=== PATIENT | male | born 1955 | race Caucasian/White ===

== ENCOUNTER 2020-11-28 11:48 | Emergency (ER) | payer OTHER, SELFPAY ==
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
[2020-11-28 11:55] VITALS: BP 150/86; BP 185/86; PULSE 103; PULSE 98; RESP 20; TEMP 35.8; O2SAT 94; O2SAT 985; BMI 31.5
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
[2020-11-28 14:00] VITALS: BP 150/76; PULSE 92; RESP 17; O2SAT 95
[2020-11-28 14:37] LABS: MANUAL DIFF FLAG NO
[2020-11-28 14:39] LABS: Basophils Absolute Auto 0.1 X10*3/uL (0.0-0.2); Basophils Percent Auto 0.4 % (0-2); Eosinophils Absolute Auto 0.1 X10*3/uL (0.0-0.4); Eosinophils Percent Auto 0.6 % (0-4); Hemoglobin 15.1 g/dl (14.0-18.0); Imm Gran Abs Auto 0.04 X10*3/uL (0.00-0.03); Imm Gran Pct Auto 0.3 % (0.0-0.4); Lymphocytes Absolute Auto 1.6 X10*3/uL (1.2-4.9); Lymphocytes Percent Auto 10.9 % (20-40); Mean Corpuscular HGB Conc 35.1 g/dl (31.0-36.0); Mean Corpuscular Hemoglobin 32.7 pg (27.0-33.0); Mean Corpuscular Volume 93.1 fL (80-98); Mean Platelet Volume 8.9 fL (9.4-12.4); Monocytes Absolute Auto 0.8 X10*3/uL (0.1-1.2); Monocytes Percent Auto 5.7 % (2-11); Neutrophils Absolute Auto 11.6 X10*3/uL (2.0-8.3); Neutrophils Percent Auto 82.1 % (45-73); Platelet Count 317 X10*3/uL (160-400); Red Blood Count 4.62 X10*6/uL (4.60-5.80); Red Cell Distribution Width 11.7 % (11.0-16.0); White Blood Count 14.2 X10*3/uL (4.8-10.8)
[2020-11-28] MEDS: LORazepam 2 MG/ML VIAL IVPUSH ×3 (14:40→16:17)
[2020-11-28] MEDS: Albuterol Sulfate (0.083%) 2.5 MG/3 ML VIAL.NEB 5 MG INHALE (14:42)
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
[2020-11-28 14:45] LABS: INTERNATIONAL NORM RATIO 1.1 (0.9-1.1); Prothrombin Time 13.4 SEC (10.8-13.0)
[2020-11-28 14:46] VITALS: PULSE 91; O2SAT 94
[2020-11-28 14:48] LABS: Partial Thromboplastin Time 34.9 SEC (24.1-38.0)
[2020-11-28 15:05] LABS: Ethanol 110 mg/dL
[2020-11-28 15:08] LABS: Alanine Aminotransferase 26 U/L (0-40); Albumin Level 4.3 g/dL (3.5-5.0); Alkaline Phosphatase 121 U/L (39-117); Anion Gap 16 (12-20); Aspartate Amino Transferase 28 U/L (5-37); Bilirubin Direct 0.2 mg/dL (0.0-0.5); Bilirubin Total 0.4 mg/dL (0.0-1.0); Blood Urea Nitrogen 9 mg/dL (9-16); Calcium 9.4 mg/dL (8.4-10.2); Carbon Dioxide 26 mmol/L (22-29); Chloride 98 mmol/L (96-108); Estimated Glomerular Filt Rate > 60; Glucose Random 99 mg/dL (60-115); Lipase 65 U/L (8-78); Sodium 136 mmol/L (135-145); Total Protein 7.4 g/dL (6.5-8.0)
[2020-11-28] MEDS: 0.9 % Sodium Chloride 1,000 ML 999 ML IVCONT (15:12)
--- NOTE | 2020-11-28 15:13 | PC.NURSE ---
pt agreeable to transfer, requesting more anxiety meds. pt agreeable to c-collar. c-collar placed.
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
[2020-11-28 15:42] LABS: COVID-19 Test Negative (Negative); IDNOW Serial# 08D9AD1C
[2020-11-28 16:06] VITALS: BP 152/93; PULSE 117; RESP 20; TEMP 36.8; O2SAT 94
[2020-11-28] MEDS: Haloperidol Lactate 5 MG/ML VIAL IM (16:17)
--- NOTE | 2020-11-28 16:48 | PC.NURSE ---
PT transferred [place] [facility] [place] [facility].
--- NOTE | 2020-11-28 17:11 | PC.NURSE ---
Attempted to [place] [facility] to give nurse to nurse, transferred to phone line that keeps ringing.
== END 2020-11-28 17:12 | disposition short-term general hospital (02) ==
PROVIDERS: Physician Assistant; Emergency Provider Emergency Medicine; PCP Family Medicine
DX: S02.32XA Fracture of orbital floor, left side, initial encounter for closed fracture (principal); S02.102A Fracture of base of skull, left side, initial encounter for closed fracture; S12.600A Unspecified displaced fracture of seventh cervical vertebra, initial encounter for closed fracture; S01.81XA Laceration without foreign body of other part of head, initial encounter; F10.129 Alcohol abuse with intoxication, unspecified; Y90.5 Blood alcohol level of 100-119 mg/100 ml; R45.1 Restlessness and agitation; V47.5XXA Car driver injured in collision with fixed or stationary object in traffic accident, initial encounter; Y93.89 Activity, other specified; Y92.410 Unspecified street and highway as the place of occurrence of the external cause; Y99.9 Unspecified external cause status; Z20.822 Contact with and (suspected) exposure to COVID-19
CPT/HCPCS: 36415; 70450; 72125; 80048; 80076; 82077; 83690; 83735; 85025; 85610; 85730; 87635; 94640; 96361; 96372; 96374; 96376; 99285; J2060